=== PATIENT | male | born 1980 | race Caucasian/White ===

== ENCOUNTER 2017-12-19 14:06 | Emergency (ER) | payer SELFPAY ==
[~2017-12-19] VITALS: Ht 185.4 cm; Wt 88.0 kg
[~2017-12-19 14:06] MED LIST: IBUP-2354 PO
[2017-12-19] MEDS ORDERED: AZITHROMYCIN 250 MG TABLET PO ONE (17:00)
[2017-12-19] MEDS ORDERED: LIDOCAINE HCL/PF 1% 2 ML VIAL IM ONE (17:00)
[2017-12-19] MEDS ORDERED: CefTRIAXone SODIUM 1 GM/VIAL IM ONE (17:00)
[2017-12-19 17:10] LABS: AMPHET/METH SCREEN,URINE POSITIVE (NEGATIVE); BARBITURATE SCREEN, URINE NEGATIVE (NEGATIVE); BENZODIAZEPINES SCREEN,URINE NEGATIVE (NEGATIVE); CANNABINOID SCREEN,URINE NEGATIVE (NEGATIVE); COCAINE SCREEN,URINE NEGATIVE (NEGATIVE); METHADONE SCREEN, URINE NEGATIVE (NEGATIVE); OPIATE SCREEN,URINE NEGATIVE (NEGATIVE); PHENCYCLIDINE SCREEN,URINE NEGATIVE (NEGATIVE)
[2017-12-19 17:20] LABS: APPEARANCE,URINE TURBID (CLEAR); BILIRUBIN,URINE NEGATIVE (NEGATIVE); GLUCOSE, URINE (UA) NEGATIVE (NEGATIVE); KETONES,URINE NEGATIVE (NEGATIVE); LEUKOCYTE ESTERASE ,URINE MODERATE (NEGATIVE); NITRATE,URINE NEGATIVE (NEGATIVE); OCCULT BLOOD,URINE TRACE (NEGATIVE); PROTEIN,URINE POS 1+ (NEGATIVE); UROBILINOGEN,URINE 0.2 mg/dL (<=1.0)
[2017-12-19 17:26] VITALS: BP 126/79
[2017-12-19 17:28] LABS: CALCIUM OXALATE CRYSTALS,UR Many /LPF (None Seen); WBC,URINE >100 /HPF (0-5)
[2017-12-19 17:29] LABS: BACTERIA,URINE Few /HPF (None Seen)
[2017-12-19 17:30] LABS: RBC,URINE 0-2 /HPF (0-2)
[2017-12-19 17:31] LABS: SQUAMOUS EPITHELIAL CELL,UR None Seen /LPF (None Seen)
== END 2017-12-19 17:31 | disposition home or self-care (01) ==
LOC: EMS 14:07
DX: N34.2 Other urethritis (principal); F15.10 Other stimulant abuse, uncomplicated; F17.210 Nicotine dependence, cigarettes, uncomplicated; K50.90 Crohn's disease, unspecified, without complications
CPT/HCPCS: 80307; 81001; 87086; 96372; 99284; J0696; J3490